=== PATIENT | female | born 1980 | race African-American/Black ===

== ENCOUNTER 2025-10-23 08:01 | Emergency (ER) | payer OTHER ==
[~2025-10-23] VITALS: Ht 152.4 cm; Wt 63.6 kg
[2025-10-23 08:11] VITALS: TEMP 98.3
[2025-10-23] MEDS ORDERED: DULA0.75 SQ (08:39)
[2025-10-23] MEDS ORDERED: OLAN10TA74 PO (08:39)
[2025-10-23] MEDS ORDERED: CITA-144 PO (08:39)
[2025-10-23] MEDS ORDERED: TRAZ-252 PO (08:39)
[2025-10-23] MEDS: PANTOPRAZOLE SODIUM 40 MG/VIAL IVP ONE (08:45)
[2025-10-23] MEDS: ONDANSETRON HCL 4 MG/2 ML VIAL IVP ONE (08:45)
[2025-10-23] MEDS: OCTREOTIDE ACETATE 100 MCG/ML VIAL IVP ONE (08:46)
[2025-10-23] MEDS: CefTRIAXone SODIUM 2 GM in DEXTROSE 5%-WATER 50 ML IV ONE (08:46)
[2025-10-23 08:54] LABS: PLATELET COUNT (AUTO) 230 K/uL (150-450); RED BLOOD CELL COUNT(AUTO) 4.26 MIL/uL (4.00-5.20); RED CELL DISTRIBUTION WIDTH 17.9 % (11.5-14.5); WHITE BLOOD COUNT (AUTO) 5.1 K/uL (4.5-11.0)
[2025-10-23 09:09] LABS: ASPARTATE AMINOTRANSFERASE 18 U/L (15-37); TOTAL PROTEIN, SERUM 8.2 g/dL (6.4-8.2)
[2025-10-23 09:14] LABS: CALCIUM, TOTAL 9.0 mg/dL (8.8-10.5); CREATININE 0.74 mg/dL (0.60-1.30); GLOMERULAR FILTR. RATE CALC > 60 mL/min (>60); GLUCOSE,RANDOM 95 mg/dL (70-110); SODIUM SERUM 137 mmol/L (136-145); UREA NITROGEN, BLOOD 14 mg/dL (7-18)
[2025-10-23 09:17] LABS: ALCOHOL, BLOOD (SERUM) < 3 mg/dL (0-10)
[2025-10-23] MEDS ORDERED: SODIUM CHLORIDE 0.9% 100 ML ONE (09:29)
[2025-10-23] MEDS ORDERED: IOHEXOL 350 MG/ML 100 ML VIAL ONE (09:29)
[2025-10-23] MEDS: PANTOPRAZOLE SODIUM 80 MG in SODIUM CHLORIDE 0.9% 100 ML IV SCH (09:59)
[2025-10-23 10:06] LABS: ALCOHOL, URINE DRUG SCREEN NEGATIVE (NEGATIVE); AMPHET/METH SCREEN,URINE NEGATIVE (NEGATIVE); BARBITURATE SCREEN, URINE NEGATIVE (NEGATIVE); CANNABINOID SCREEN,URINE NEGATIVE (NEGATIVE); COCAINE SCREEN,URINE NEGATIVE (NEGATIVE); METHADONE SCREEN, URINE NEGATIVE (NEGATIVE)
[2025-10-23 10:12] LABS: APPEARANCE,URINE CLEAR (CLEAR); GLUCOSE, URINE (UA) NEGATIVE (NEGATIVE); LEUKOCYTE ESTERASE ,URINE NEGATIVE (NEGATIVE); NITRATE,URINE NEGATIVE (NEGATIVE); OCCULT BLOOD,URINE LARGE (NEGATIVE); PH,URINE DRUG SCREEN 5.0 (5.0-8.0); SPECIFIC GRAVITIY, URINE 1.018 (1.003-1.030)
[2025-10-23] MEDS: OCTREOTIDE ACETATE 500 MCG in SODIUM CHLORIDE 0.9% 97.5 ML IV SCH (10:35)
[2025-10-23 10:51] LABS: SQUAMOUS EPITHELIAL CELL,UR Rare /LPF (None Seen)
[2025-10-23 15:07] VITALS: BP 138/84; PULSE 72; RESP 17; O2SAT 100
== END 2025-10-23 15:13 | disposition short-term general hospital (02) ==
LOC: EMS 08:01
DX: K92.0 Hematemesis (principal); K59.00 Constipation, unspecified; Z87.19 Personal history of other diseases of the digestive system; Z65.3 Problems related to other legal circumstances
CPT/HCPCS: 99285; 74177; 96365; 96366; 96375; 71045; 96367; 80048; 80076; 81001; 82962; 83690; 84703; 85025; 85610; 85730; 86850; 86900; 86901; 36415; 93005; 96368; 80307; G0480; Q9967; J0696; J2405; J2470; J7060; J7050; J2354 ×2